=== PATIENT | female | born 1980 | race Caucasian/White ===

== ENCOUNTER 2020-02-05 07:57 | Emergency (ER) | payer BC ==
[2020-02-05 08:07] VITALS: BP 112/75; PULSE 51
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
--- NOTE | 2020-02-07 09:49 | CR ---
Left elbow: 4 views of the left elbow were obtained. Comparison: No prior elbow study. Joint spaces are maintained. No joint effusion is seen. No fracture or other bony abnormality is appreciated. Impression: 1. No abnormality is identified on 4 view left elbow study. Diagnostic code #1 This report was dictated in MDT
== END 2020-02-05 10:16 | disposition home or self-care (01) ==
LOC: JD.ED 07:57
DX: S50.02XA Contusion of left elbow, initial encounter (principal); W22.8XXA Striking against or struck by other objects, initial encounter
CPT/HCPCS: 73080-26-LT; 73080-LT; 99282; 99283

== ENCOUNTER 2022-09-14 08:36 | Emergency (ER) | payer BC ==
[2022-09-14 08:57] VITALS: BP 108/61; PULSE 62
[2022-09-14] MEDS ORDERED: Fluorescein 1 MG Ophth Strip EYEBOTH ONE (09:18)
== END 2022-09-14 10:08 | disposition home or self-care (01) ==
LOC: JD.ED 08:36
DX: S05.02XA Injury of conjunctiva and corneal abrasion without foreign body, left eye, initial encounter (principal)
CPT/HCPCS: 99282; 99283

== ENCOUNTER 2022-10-28 10:02 | Emergency (ER) | payer BC ==
[2022-10-28] MEDS ORDERED: Acetaminophen 325 MG Tab PO ONE (10:46)
[2022-10-28 12:19] VITALS: BP 103/70; PULSE 70
== END 2022-10-28 12:19 | disposition home or self-care (01) ==
LOC: JD.ED 10:02
DX: R07.89 Other chest pain (principal); Z86.16 Personal history of COVID-19
CPT/HCPCS: 36415; 71045; 71046; 84484; 93005; 99285; A9270; 99283

== ENCOUNTER 2022-10-31 10:30 | Emergency (ER) | payer BC ==
[2022-10-31 10:43] VITALS: BP 113/74; PULSE 68
[2022-10-31] MEDS ORDERED: Dexamethasone 10 MG/ML SDV IM ONE (11:36)
[2022-10-31] MEDS ORDERED: Ketorolac 60 MG/2 ML SDV IM ONE (11:37)
[2022-10-31] MEDS ORDERED: Codeine/Promethazine 10-6.25 MG/5 ML Syrup 5 ML UD Cup PO ONE (11:38)
== END 2022-10-31 13:08 | disposition home or self-care (01) ==
LOC: JD.ED 10:30
DX: U07.1 COVID-19 (principal); J02.9 Acute pharyngitis, unspecified; Z86.16 Personal history of COVID-19
CPT/HCPCS: 96372; 99282; A9270; J1100; J1885